=== PATIENT | male | born 1955 | race Caucasian/White ===

== ENCOUNTER 2016-12-05 21:58 | Emergency (ER) | payer OTHER ==
[~2016-12-05] VITALS: Ht 167.6 cm; Wt 95.0 kg
[2016-12-05 21:59] VITALS: BP 118/71; PULSE 108; RESP 16; TEMP 98.2; O2SAT 98
--- NOTE | 2016-12-05 22:17 | PD ---
HPI Chief Complaint: Psychiatric Symptoms Time Seen by Provider: 22:09 Travel History International Travel<30 days: No Contact w/Intl Traveler<30days: No Traveled to known affect area: No History of Present Illness HPI Patient comes in under a Sanchez acted by police for suicidal thoughts. Patient was reportedly found laying on railroad tracks laying in telling the superintendent police he just wants to . customs officer states that patient's sister told him the patient has a history of bipolar and has not been taking his medications. Patient states that he spoke to God recently and has a scheduled appointment to in 4 days. Patient is concerned that if he is in the hospital or goes to [facility] he will miss his appointment and not be allowed to . Patient does admit to smoking meth, but states he only started about 2 weeks ago. Denies any homicidal ideations. Denies any chest pain, shortness of breath, headache, fevers, nausea, or vomiting. PFSH Past Medical History Anxiety: Yes Depression: Yes COPD: Yes Diabetes: Yes Patient Takes Glucophage: No Past Surgical History Abdominal Surgery: Yes Coronary Artery Bypass Graft: Yes Social History Alcohol Use: Yes Tobacco Use: Yes Substance Use: Yes (METH, CRACK "OCCASIONALLY" ) Allergies-Medications (Allergen,Severity, Reaction): Coded Allergies: No Known Allergies (Unverified , 12/05/16) Reported Meds & Prescriptions Reported Meds & Active Scripts Active Active Prescriptions or Reported Medications Unobtainable Review of Systems ROS Limitations: Other: (substance abuse/delusional) Except as stated in HPI: all other systems reviewed are Neg Physical Exam Exam Limitations: Other: (substance abuse/delusional) Narrative GENERAL: Well-developed, overly nourished, in no acute distress, and non-ill appearing. SKIN: Focused skin assessment warm and dry. Previous surgical scars noted on abdomen and chest. HEAD: Atraumatic. Normocephalic. EYES: Pupils equal and round. EOMI. No scleral icterus. No injection or drainage. ENT: No nasal bleeding or discharge. Mucous membranes pink and moist. NECK: Trachea midline. Supple. No nuclear rigidity. CARDIOVASCULAR: Regular rate and rhythm. No murmur appreciated. RESPIRATORY: No accessory muscle use. No respiratory distress. Clear to auscultation. Breath sounds equal bilaterally. MUSCULOSKELETAL: No obvious deformities. No clubbing. No cyanosis. No edema. Full range of motion. NEUROLOGICAL: Awake and alert. No obvious cranial nerve deficits. Motor grossly within normal limits. Rambling speech. PSYCHIATRIC: Insight and judgment abnormal. Data Data Last Documented VS Vital Signs Date Time Temp Pulse Resp B/P Pulse Ox O2 Delivery O2 Flow Rate FiO2 12/05/16 21:59 98.2 108 16 118/71 98 Orders Complete Blood Count With Diff (12/05/16 22:06) Comprehensive Metabolic Panel (12/05/16 22:06) Psych Screen (12/05/16 22:06) Drug Screen, Random Urine (12/05/16 22:06) Alcohol (Ethanol) (12/05/16 22:06) Salicylates (Aspirin) (12/05/16 22:06) Tylenol (Acetaminophen) (12/05/16 22:06) Urinalysis - C+S If Indicated (12/05/16 22:37) Lorazepam Inj (Ativan Inj) (12/05/16 22:45) Creatine Kinase (Cpk) (12/05/16 22:55) Ns (Bolus) Inj (12/05/16 23:00) Labs Laboratory Tests Test 12/05/16 22:10 White Blood Count 20.4 TH/MM3 Red Blood Count 5.51 MIL/MM3 Hemoglobin 14.8 GM/DL Hematocrit 44.3 % Mean Corpuscular Volume 80.3 FL Mean Corpuscular Hemoglobin 26.8 PG Mean Corpuscular Hemoglobin 33.4 % Concent Red Cell Distribution Width 14.1 % Platelet Count 245 TH/MM3 Mean Platelet Volume 9.2 FL Neutrophils (%) (Auto) 83.3 % Lymphocytes (%) (Auto) 8.5 % Monocytes (%) (Auto) 6.5 % Eosinophils (%) (Auto) 0.9 % Basophils (%) (Auto) 0.8 % Neutrophils # (Auto) 17.0 TH/MM3 Lymphocytes # (Auto) 1.7 TH/MM3 Monocytes # (Auto) 1.3 TH/MM3 Eosinophils # (Auto) 0.2 TH/MM3 Basophils # (Auto) 0.2 TH/MM3 CBC Comment DIFF FINAL Differential Comment Sodium Level 141 MEQ/L Potassium Level 4.2 MEQ/L Chloride Level 105 MEQ/L Carbon Dioxide Level 24.7 MEQ/L Anion Gap 11 MEQ/L Blood Urea Nitrogen 65 MG/DL Creatinine 3.59 MG/DL Estimat Glomerular Filtration 17 ML/MIN Rate Random Glucose 113 MG/DL Calcium Level 9.5 MG/DL Total Bilirubin 0.6 MG/DL Aspartate Amino Transf 39 U/L (AST/SGOT) Alanine Aminotransferase 21 U/L (ALT/SGPT) Alkaline Phosphatase 83 U/L Total Protein 8.8 GM/DL Albumin 4.5 GM/DL Salicylates Level 2.9 MG/DL Ethyl Alcohol Level LESS THAN 3 MG/DL MDM Medical Decision Making Medical Screen Exam Complete: Yes Emergency Medical Condition: Yes Differential Diagnosis Suicidal, homicidal, electrolyte abnormality, alcohol intoxication, substance abuse, acute psychosis, bipolar, other Narrative Course Patient seen and examined. Initial laboratory studies were obtained and reviewed. 2028. Patient noted to be talking to himself in the room and moving a bed nonstop. In no acute distress. Discussed patient with Dr. Epstein. UA as well as CK was added. Patient was given Ativan and IV fluids. Patient was sent to Dr. Epstein at the end of my shift. Please see her documentation for final diagnosis and disposition. Scripts Unable to Obtain Active Prescriptions or Reported Meds Flo Duncan December 05, 2016 22:17
[2016-12-05 22:19] LABS: BASOPHIL # 0.2 TH/MM3 (0-0.2); BASOPHIL % 0.8 % (0.0-2.0); EOSINOPHIL # 0.2 TH/MM3 (0-0.4); EOSINOPHIL % 0.9 % (0.0-4.0); HEMATOCRIT 44.3 % (39.0-51.0); HEMO FLAGS DIFF FINAL; LYMPH % 8.5 % (9.0-44.0); LYMPHOCYTE # 1.7 TH/MM3 (1.0-4.8); MEAN CELL VOLUME 80.3 FL (80.0-100.0); MEAN CORPUSCULAR HEMOGLOBIN 26.8 PG (27.0-34.0); MEAN CORPUSCULAR HGB CONC 33.4 % (32.0-36.0); MONO % 6.5 % (0.0-8.0); NEUT % 83.3 % (16.0-70.0); PLATELET COUNT 245 TH/MM3 (150-450); RED BLOOD COUNT 5.51 MIL/MM3 (4.50-5.90); RED CELL DISTRIBUTION WIDTH 14.1 % (11.6-17.2); WHITE BLOOD COUNT 20.4 TH/MM3 (4.0-11.0)
[2016-12-05] MEDS ORDERED: LORazepam 2 MG/ML VIAL IV PUSH ONE (22:45)
[2016-12-05 22:49] LABS: ALT (GPT) 21 U/L (12-78); ANION GAP 11 MEQ/L (5-15); AST (GOT) 39 U/L (15-37); BICARBONATE 24.7 MEQ/L (21.0-32.0); BLOOD UREA NITROGEN 65 MG/DL (7-18); CHLORIDE 105 MEQ/L (98-107); GLOMERULAR FILTRATION RATE 17 ML/MIN (>89); POTASSIUM 4.2 MEQ/L (3.5-5.1); SODIUM (NA) 141 MEQ/L (136-145)
[2016-12-05 22:52] LABS: ALKALINE PHOSPHATASE 83 U/L (45-117); TOTAL BILIRUBIN ADULT 0.6 MG/DL (0.2-1.0)
[2016-12-05] MEDS ORDERED: SODIUM CHLOR 0.9% 1000 ML INJ 1,000 ML IV ONE (23:00)
[2016-12-05 23:05] LABS: ACETAMINOPHEN LESS THAN 2.0 MCG/ML (10.0-30.0)
[2016-12-05 23:05] LABS: AMPHETAMINE, URINE POS (NEG); BACTERIA, URINE OCC /hpf; BARBITURATES, URINE NEG (NEG); BLOOD, URINE TRACE (NEG); COCAINE, URINE POS (NEG); COMMENT (UR) CULTURE INDICATED; CULTURE IF INDICATED CULTURE INDICATED; GLUCOSE,URINE NEG (NEG); GRANULAR CAST, URINE 24 /lpf; HYALINE CAST, URINE 104 /lpf (RARE); KETONE, URINE NEG (NEG); MUCUS URINE FEW /lpf (OCC); NITRITE,URINE NEG (NEG); PH, URINE 5.5 (5.0-8.5); RENAL EPITHELIAL CELLS <1 /hpf; SQUAMOUS EPITHELIAL CELL URINE 1 /hpf (0-5); URINE COLOR YELLOW (YELLW/STRAW); WAXY CAST, URINE 3 /lpf
[2016-12-05] MEDS ORDERED: diphenhydrAMINE HCL 50 MG/ML VIAL IM ONE (23:30)
[2016-12-05] MEDS ORDERED: LORazepam 2 MG/ML VIAL IM ONE (23:30)
--- NOTE | 2016-12-05 23:34 | PD ---
Data Data Last Documented VS Vital Signs Date Time Temp Pulse Resp B/P Pulse Ox O2 Delivery O2 Flow Rate FiO2 12/05/16 21:59 98.2 108 16 118/71 98 Orders Complete Blood Count With Diff (12/05/16 22:06) Comprehensive Metabolic Panel (12/05/16 22:06) Psych Screen (12/05/16 22:06) Drug Screen, Random Urine (12/05/16 22:06) Alcohol (Ethanol) (12/05/16 22:06) Salicylates (Aspirin) (12/05/16 22:06) Tylenol (Acetaminophen) (12/05/16 22:06) Urinalysis - C+S If Indicated (12/05/16 22:37) Lorazepam Inj (Ativan Inj) (12/05/16 22:45) Creatine Kinase (Cpk) (12/05/16 22:55) Sodium Chlor 0.9% 1000 Ml Inj (Ns 1000 M (12/05/16 23:00) Urine Culture (12/05/16 22:45) CKMB (12/05/16 22:10) CKMB% (12/05/16 22:10) Lorazepam Inj (Ativan Inj) (12/05/16 23:30) Diphenhydramine Inj (Benadryl Inj) (12/05/16 23:30) Labs Laboratory Tests Test 12/05/16 12/05/16 22:10 22:45 White Blood Count 20.4 TH/MM3 Red Blood Count 5.51 MIL/MM3 Hemoglobin 14.8 GM/DL Hematocrit 44.3 % Mean Corpuscular Volume 80.3 FL Mean Corpuscular Hemoglobin 26.8 PG Mean Corpuscular Hemoglobin 33.4 % Concent Red Cell Distribution Width 14.1 % Platelet Count 245 TH/MM3 Mean Platelet Volume 9.2 FL Neutrophils (%) (Auto) 83.3 % Lymphocytes (%) (Auto) 8.5 % Monocytes (%) (Auto) 6.5 % Eosinophils (%) (Auto) 0.9 % Basophils (%) (Auto) 0.8 % Neutrophils # (Auto) 17.0 TH/MM3 Lymphocytes # (Auto) 1.7 TH/MM3 Monocytes # (Auto) 1.3 TH/MM3 Eosinophils # (Auto) 0.2 TH/MM3 Basophils # (Auto) 0.2 TH/MM3 CBC Comment DIFF FINAL Differential Comment Sodium Level 141 MEQ/L Potassium Level 4.2 MEQ/L Chloride Level 105 MEQ/L Carbon Dioxide Level 24.7 MEQ/L Anion Gap 11 MEQ/L Blood Urea Nitrogen 65 MG/DL Creatinine 3.59 MG/DL Estimat Glomerular Filtration 17 ML/MIN Rate Random Glucose 113 MG/DL Calcium Level 9.5 MG/DL Total Bilirubin 0.6 MG/DL Aspartate Amino Transf 39 U/L (AST/SGOT) Alanine Aminotransferase 21 U/L (ALT/SGPT) Alkaline Phosphatase 83 U/L Total Creatine Kinase 787 U/L Total Protein 8.8 GM/DL Albumin 4.5 GM/DL Salicylates Level 2.9 MG/DL Acetaminophen Level LESS THAN 2.0 MCG/ML Ethyl Alcohol Level LESS THAN 3 MG/DL Urine Color YELLOW Urine Turbidity HAZY Urine pH 5.5 Urine Specific [place] 1.022 Urine Protein 100 mg/dL Urine Glucose (UA) NEG mg/dL Urine Ketones NEG mg/dL Urine Occult Blood TRACE Urine Nitrite NEG Urine Bilirubin SMALL Urine Urobilinogen 2.0 MG/DL Urine Leukocyte Esterase TRACE Urine RBC 2 /hpf Urine WBC 9 /hpf Urine Squamous Epithelial 1 /hpf Cells Urine Renal Epithelial Cells <1 /hpf Urine Amorphous Sediment RARE Urine Bacteria OCC /hpf Urine Hyaline Casts 104 /lpf Urine Granular Casts 24 /lpf Urine Waxy Casts 3 /lpf Urine Mucus FEW /lpf Microscopic Urinalysis Comment CULTURE INDICATED Urine Opiates Screen POS Urine Barbiturates Screen NEG Urine Amphetamines Screen POS Urine Benzodiazepines Screen NEG Urine Cocaine Screen POS Urine Cannabinoids Screen NEG MDM Supervised Visit with YESICA: Yes Narrative Course I, Dr. Epstein, have reviewed the advance practice practioner's documentation and am in agreement, met with the patient face to face, made the diagnosis, and the medical decision making was done by me. *My assessment and Findings: This 61-year-old male here under Sanchez act found for suicidal ideation laying on the railroad track stating that he wanted to . Admits that he has been on a binge of methamphetamine recently. Patient is agitated and restless but initially able to be verbally redirected with sitter. Minimally tachycardic in the 90s to 100s, restlessness and fidgeting on exam. Alert and oriented. Differential includes depression, suicidal ideation, substance induced mood disorder, adjustment reaction. Nursing spoke with patient's sister who provided additional history and states that he has history of tonic kidney disease. Over the course the last 2-3 weeks he's become increasingly agitated, altered. Per patient report he only started smoking methamphetamine approximately 2 weeks ago. Laboratory workup notable for leukocytosis 20.4, likely stress demargination from patient's sympathomimetic syndrome. Urinalysis checked and negative for evidence of infection. Blood alcohol level negative urine drug screen positive for opioids , methamphetamines, cocaine. The left with notable for renal insufficiency, BUN is 65, creatinine 3.59. I do not have old with which to compare, but based on sister's report he does have chronic renal insufficiency. CPK was added onto labs given his sympathomimetic syndrome and only millimeter elevated in the 700s. Given 1 L normal saline bolus and will be orally rehydrated. Patient became progressively more agitated, restless and attempting to flee and fight with staff. He was sedated chemically with 2 mg Ativan and 50 mg Benadryl IM and placed in restraints for his and her safety. Patient is medically cleared for psychiatric evaluation. Critical Care Narrative Aggregate critical care time was 35 minutes. Time to perform other separately billable procedures was not included in the critical care time. My time did not include minutes spent treating any other patients simultaneously or on activities that did not directly contribute to the patient's treatment. The services I provided to this patient were to treat and/or prevent clinically significant deterioration that could result in: Sympathomimetic toxidrome/ syndrome, , disability I provided critical care services requiring my management, as noted below: Chart data review, documentation time, medication orders and management, vital sign assessments/reviewing monitor data, ordering and reviewing lab tests, ordering and interpreting/reviewing x-rays and diagnostic studies, care of the patient and discussion of the patient with the admitting physicians. Diagnosis Primary Impression: Substance induced mood disorder Additional Impressions: Polysubstance abuse Chronic kidney disease Qualified Code: N18.9 - Chronic kidney disease, unspecified CKD stage Scripts Unable to Obtain Active Prescriptions or Reported Meds Yaquelin Epstein MD December 05, 2016 23:34
[2016-12-05 23:37] LABS: CKMB 6.7 NG/ML (0.5-3.6)
[2016-12-06 00:08] VITALS: BP 119/57; PULSE 133; RESP 22; O2SAT 90
[2016-12-06] MEDS ORDERED: HALOPERIDOL LACTATE 5 MG/ML AMP IM ONE (00:15)
[2016-12-06 01:00] VITALS: BP 120/66; PULSE 110; RESP 18; O2SAT 100
[2016-12-06 02:09] VITALS: BP 118/71; PULSE 110; PULSE 84; RESP 18; O2SAT 100; O2SAT 97
[2016-12-06 02:20] VITALS: BP 131/72; PULSE 89; RESP 18; O2SAT 99
[2016-12-06 11:13] VITALS: BP 98/57; PULSE 83; RESP 18; O2SAT 97
[2016-12-06 14:00] VITALS: BP 117/58; PULSE 85; RESP 18
[2016-12-06] MEDS ORDERED: CYCL1TAB29 PO (14:25)
[2016-12-06] MEDS ORDERED: ROPI2TAB PO (14:25)
[2016-12-06] MEDS ORDERED: PROBCAP28 PO (14:25)
[2016-12-06] MEDS ORDERED: INSU1INJ5 SQ (14:25)
[2016-12-06] MEDS ORDERED: NOVOINJ3 SQ (14:25)
[2016-12-06] MEDS ORDERED: DULO1CAP3 PO (14:25)
[2016-12-06] MEDS ORDERED: LISI-519 PO (14:25)
[2016-12-06] MEDS ORDERED: CLON1TAB PO (14:25)
[2016-12-06] MEDS ORDERED: OMEP20TA PO (14:25)
[2016-12-06] MEDS ORDERED: VENTAER INH (14:25)
[2016-12-06] MEDS ORDERED: GENT80I IM (14:25)
[2016-12-06] MEDS ORDERED: TRAZ100T4 PO (14:25)
[2016-12-06] MEDS ORDERED: LEVO75TA3 PO (14:25)
[2016-12-06] MEDS ORDERED: ASPI-110 PO (14:25)
[2016-12-06] MEDS ORDERED: COQ-150C PO (14:25)
[2016-12-06] MEDS ORDERED: GABA300C5 PO (14:25)
[2016-12-06] MEDS ORDERED: MOBI7.5T PO (14:25)
[2016-12-06] MEDS ORDERED: FLUO40CA PO (14:25)
[2016-12-06] MEDS ORDERED: FLUT1INH INH (14:25)
[2016-12-06] MEDS ORDERED: DICL50TA PO (14:25)
[2016-12-06] MEDS ORDERED: CIAL5TAB PO (14:25)
[2016-12-06] MEDS ORDERED: ATOR10TA15 PO (14:25)
[2016-12-06] MEDS ORDERED: HYDR-3533 PO (14:25)
[2016-12-06] MEDS ORDERED: BISA10SU3 RECTAL (14:25)
[2016-12-06] MEDS ORDERED: GEMF600T PO (14:25)
--- NOTE | 2016-12-06 16:41 | PD ---
History of Present Illness Chief Complaint: Psychiatric Symptoms Time Seen by Provider: 16:30 Travel History International Travel<30 Days: No Contact w/Intl Traveler<30days: No Known affected area: No Legal Status Legal Status: Sanchez Act Sanchez Act Signed By: History of Present Illness: 61-year-old male with a history of multiple medical problems, takes multiple medications, including Cialis, Prozac, Cymbalta, trazodone, and a host of nonpsychiatric medicines. Patient used cocaine recently and is also positive for amphetamines. At this time he is not suicidal or homicidal. However his sister called and wants him "put away" for a "long time". Patient is calm and fairly pleasant. He is initially attempting to lie about his substance abuse. This physician does not find that he meets Sanchez act criteria as he is not currently suicidal or homicidal. His main problem is felt to be substance abuse and a lack of personal responsibility. Therefore this physician recommended the patient go to [facility] for rehabilitation. In the meantime his Sanchez act is being lifted because he does not actually meet Sanchez act criteria or criteria for admission to the inpatient psychiatric facility and this physician's opinion. PFSH Past Medical History Bipolar Disorder: Yes Anxiety: Yes Depression: Yes COPD: Yes Coronary Artery Disease: Yes Diabetes: Yes Patient Takes Glucophage: No Diverticulitis: Yes GERD: Yes Hypertension: Yes Insomnia: Yes Medical other: Yes (POLYCYTHEMIA, CKD STAGE 2 ) Past Surgical History Abdominal Surgery: Yes Coronary Artery Bypass Graft: Yes Psychiatric History Psychiatric History Hx Psychiatric Treatment: TREATED AT [facility] IN [place]. ACCORDING TO SISTER HE HAS BIPOLAR ILLNESS. MED LIST DOES NOT REFLECT THAT DIAGNOSIS. This physician does not find clinical evidence of bipolar disorder at this time. However, the patient's recent history of cocaine use and possible amphetamine use rules out that diagnosis at this time. History of Inpatient Treatment: No Guns or firearms in home: No Social History Hx Alcohol Use: Yes Hx Tobacco Use: Yes Hx Substance Use: Yes Substance Use Type: Amphetamines-Stimulants, Cocaine Hx of Substance Use Treatment: No Allergies-Medications (Allergen,Severity, Reaction): Coded Allergies: Metformin (Verified Adverse Reaction, Intermediate, Cramping, 12/05/16) Reported Meds & Prescriptions Reported Meds & Active Scripts Active Reported Gabapentin 300 Mg Cap 300 Mg PO HS Diclofenac Potassium 50 Mg Tab 50 Mg PO TID Flexeril (Cyclobenzaprine HCl) 10 Mg Tab 10 Mg PO TID Mobic (Meloxicam) 7.5 Mg Tab 7.5 Mg PO BID Probiotic Daily (Probiotic Product) 1 Cap Cap 2 Cap PO DAILY Gentamicin Inj (Gentamicin Sulfate) 40 Mg/Ml Inj 80 Mg IM Fluoxetine (Fluoxetine HCl) 40 Mg Cap 40 Cap PO DAILY Duloxetine DR (Duloxetine HCl) 60 Mg Capdr 60 Mg PO DAILY Clonazepam 1 Mg Tab 1 Mg PO TID Bisacodyl Supp (Bisacodyl) 10 Mg Supp 10 Mg RECTAL DAILY PRN Ventolin Hfa 18 GM Inh (Albuterol Sulfate) 90 Mcg/Act Aer 2 Puff INH Q4-6H PRN Breo Ellipta Inh (Fluticasone/Vilanterol) 100-25 Mcg/Act Inh 1 Puff INH DAILY Use daily at the same time. Cialis (Tadalafil) 5 Mg Tab 5 Mg PO DAILY Do not exceed 1 dose/day. Lisinopril 5 Mg Tab 5 Mg PO DAILY Aspirin 81 (Aspirin) 81 Mg Tabdr 81 Mg PO DAILY Trazodone (Trazodone HCl) 100 Mg Tab 200 Mg PO HS Omeprazole 20 Mg Tab 20 Mg PO DAILY Novolog Flexpen Inj (Insulin Aspart) 300 Unit/3 Ml Pen 4 Units SQ TIDAC Levothyroxine (Levothyroxine Sodium) 75 Mcg Tab 75 Mcg PO DAILY Coq-10 (Coenzyme Q10 (Ubidecarenone)) 150 Mg Cap 300 Mg PO DAILY Atorvastatin (Atorvastatin Calcium) 10 Mg Tab 10 Mg PO HS Lortab (Hydrocodone-Acetaminophen) 5-325 Mg Tab 1 Tab PO Q6H PRN Ropinirole 2 Mg Tab 2 Mg PO BID Gemfibrozil 600 Mg Tab 600 Mg PO BIDAC Take 30 minutes prior to breakfast and dinner. Review of Systems Except as stated in HPI: all other systems reviewed are Neg Exam Alert: Yes [place]: Person, Place, Date, Situation Mood: Calm Affect: Appropriate Speech: Clear Eye Contact: Normal Memory Intact: Immediate, Recent, Remote Insight/Judgement Adequate except for his use of substances. [facility] Medical Decision Making Assessment/Plan Sanchez act being lifted because patient does not currently meet Sanchez act criteria and this physician's opinion. He is also being discharged home as admitting him to inpatient psychiatric facility with recent history of substance abuse would be counter therapeutic and inappropriate. Orders Complete Blood Count With Diff (12/05/16 22:06) Comprehensive Metabolic Panel (12/05/16 22:06) Psych Screen (12/05/16 22:06) Drug Screen, Random Urine (12/05/16 22:06) Alcohol (Ethanol) (12/05/16 22:06) Salicylates (Aspirin) (12/05/16 22:06) Tylenol (Acetaminophen) (12/05/16 22:06) Urinalysis - C+S If Indicated (12/05/16 22:37) Lorazepam Inj (Ativan Inj) (12/05/16 22:45) Creatine Kinase (Cpk) (12/05/16 22:55) Sodium Chlor 0.9% 1000 Ml Inj (Ns 1000 M (12/05/16 23:00) Urine Culture (12/05/16 22:45) CKMB (12/05/16 22:10) CKMB% (12/05/16 22:10) Lorazepam Inj (Ativan Inj) (12/05/16 23:30) Diphenhydramine Inj (Benadryl Inj) (12/05/16 23:30) Restraints Violent (12/05/16 23:34) Haloperidol Inj (Haldol Inj) (12/06/16 00:15) Diet Diabetic (12/06/16 Breakfast) Diet Diabetic (12/06/16 Lunch) Results Vital Signs Date Time Temp Pulse Resp B/P Pulse Ox O2 Delivery O2 Flow Rate FiO2 12/06/16 14:00 85 18 117/58 Room Air 12/06/16 11:13 83 18 98/57 97 Room Air 12/06/16 02:20 89 18 131/72 99 Room Air 12/06/16 02:09 84 18 118/71 97 Room Air 12/06/16 01:00 110 18 120/66 100 12/06/16 00:08 133 22 119/57 90 12/05/16 21:59 98.2 108 16 118/71 98 Laboratory Tests Test 12/05/16 12/05/16 22:10 22:45 White Blood Count 20.4 Red Blood Count 5.51 Hemoglobin 14.8 Hematocrit 44.3 Mean Corpuscular Volume 80.3 Mean Corpuscular Hemoglobin 26.8 Mean Corpuscular Hemoglobin 33.4 Concent Red Cell Distribution Width 14.1 Platelet Count 245 Mean Platelet Volume 9.2 Neutrophils (%) (Auto) 83.3 Lymphocytes (%) (Auto) 8.5 Monocytes (%) (Auto) 6.5 Eosinophils (%) (Auto) 0.9 Basophils (%) (Auto) 0.8 Neutrophils # (Auto) 17.0 Lymphocytes # (Auto) 1.7 Monocytes # (Auto) 1.3 Eosinophils # (Auto) 0.2 Basophils # (Auto) 0.2 CBC Comment DIFF FINAL Differential Comment Sodium Level 141 Potassium Level 4.2 Chloride Level 105 Carbon Dioxide Level 24.7 Anion Gap 11 Blood Urea Nitrogen 65 Creatinine 3.59 Estimat Glomerular Filtration 17 Rate Random Glucose 113 Calcium Level 9.5 Total Bilirubin 0.6 Aspartate Amino Transf 39 (AST/SGOT) Alanine Aminotransferase 21 (ALT/SGPT) Alkaline Phosphatase 83 Total Creatine Kinase 787 Creatine Kinase MB 6.7 Creatine Kinase MB % 0.9 Total Protein 8.8 Albumin 4.5 Salicylates Level 2.9 Acetaminophen Level LESS THAN 2.0 Ethyl Alcohol Level LESS THAN 3 Urine Color YELLOW Urine Turbidity HAZY Urine pH 5.5 Urine Specific [place] 1.022 Urine Protein 100 Urine Glucose (UA) NEG Urine Ketones NEG Urine Occult Blood TRACE Urine Nitrite NEG Urine Bilirubin SMALL Urine Urobilinogen 2.0 Urine Leukocyte Esterase TRACE Urine RBC 2 Urine WBC 9 Urine Squamous Epithelial 1 Cells Urine Renal Epithelial Cells <1 Urine Amorphous Sediment RARE Urine Bacteria OCC Urine Hyaline Casts 104 Urine Granular Casts 24 Urine Waxy Casts 3 Urine Mucus FEW Microscopic Urinalysis Comment CULTURE INDICATED Urine Opiates Screen POS Urine Barbiturates Screen NEG Urine Amphetamines Screen POS Urine Benzodiazepines Screen NEG Urine Cocaine Screen POS Urine Cannabinoids Screen NEG Date/Time Procedure Status Source Growth 12/05/16 22:45 Urine Culture - Preliminary Resulted Urine Random Urine No growth. Diagnosis Primary Impression: Cocaine abuse Niko Luevano MD December 06, 2016 16:41
== END 2016-12-06 18:18 | disposition home or self-care (01) ==
LOC: NEPE 21:58 → NEPJ 12-06 18:18
DX: F11.24 Opioid dependence with opioid-induced mood disorder (principal); N18.2 Chronic kidney disease, stage 2 (mild); R00.0 Tachycardia, unspecified; R45.851 Suicidal ideations; F15.90 Other stimulant use, unspecified, uncomplicated; E11.9 Type 2 diabetes mellitus without complications; Z87.891 Personal history of nicotine dependence; F41.8 Other specified anxiety disorders; J44.9 Chronic obstructive pulmonary disease, unspecified; Z79.4 Long term (current) use of insulin; Z95.1 Presence of aortocoronary bypass graft; I12.9 Hypertensive chronic kidney disease with stage 1 through stage 4 chronic kidney disease, or unspecified chronic kidney disease; I25.10 Atherosclerotic heart disease of native coronary artery without angina pectoris; Z91.14 Patient's other noncompliance with medication regimen; Z79.82 Long term (current) use of aspirin
CPT/HCPCS: 80053; 80307; 81001; 82550; 82552; 85025; 87086; 96361; 96372; 96374; 99291; J1200; J1630; J2060; J7030